=== PATIENT | female | born 1985 | race American Indian/Alaskan Native ===

== ENCOUNTER 2018-05-17 18:48 | Emergency (ER) | payer OTHER ==
--- NOTE | 2018-05-17 19:28 | Emergency Department Report ---
Blank Doc - Documentation Documentation: This is a 32-year-old female that presents with sore throat. This initial assessment/diagnostic orders/clinical plan/treatment(s) is/are subject to change based on patient's health status, clinical progression and re- assessment by fellow clinical providers in the ED. Further treatment and workup at subsequent clinical providers discretion. Patient/guardians urged not to elope from the ED as their condition may be serious if not clinically assessed and managed. Initial orders include: 1- Patient sent to [facility] for further evaluation and treatment 2- strep swab
[2018-05-17 19:29] VITALS: BP 128/77
[2018-05-17] MEDS ORDERED: LIDOCAINE VISCOUS 2% PO ONE (21:15)
[2018-05-17] MEDS ORDERED: LIDOCAINE VISCOUS 2% ONE (21:15)
[2018-05-17] MEDS ORDERED: MOTRIN ONE (21:15)
[2018-05-17] MEDS ORDERED: IBUPROFEN PO ONE (21:15)
--- NOTE | 2018-05-17 22:16 | Emergency Department Report ---
ED ENT HPI - General Chief complaint: Sore Throat Stated complaint: SORE THROAT Time Seen by Provider: 05/17/18 19:26 Source: patient Mode of arrival: Ambulatory Limitations: No Limitations - History of Present Illness MD complaint: sore throat -: Gradual (5), days(s) Location: throat Severity: moderate Quality: aching, dull Consistency: constant Improves with: none Associated Symptoms: sore throat - Related Data Previous Rx's Medication Instructions Recorded Last Taken Type Amoxicillin 500 mg PO QID #40 capsule 05/17/18 Unknown Rx Lidocaine Viscous 2% 5 ml MM Q3H PRN #120 udc 05/17/18 Unknown Rx Allergies Allergy/AdvReac Type Severity Reaction Status Date / Time No Known Allergies Allergy Verified 05/17/18 21:42 ED Dental HPI - General Chief complaint: Sore Throat Stated complaint: SORE THROAT Time Seen by Provider: 05/17/18 19:26 Source: patient Mode of arrival: Ambulatory Limitations: No Limitations - Related Data Previous Rx's Medication Instructions Recorded Last Taken Type Amoxicillin 500 mg PO QID #40 capsule 05/17/18 Unknown Rx Lidocaine Viscous 2% 5 ml MM Q3H PRN #120 udc 05/17/18 Unknown Rx Allergies Allergy/AdvReac Type Severity Reaction Status Date / Time No Known Allergies Allergy Verified 05/17/18 21:42 ED Review of Systems ROS: Stated complaint: SORE THROAT Other details as noted in HPI Constitutional: denies: chills, fever Eyes: denies: eye pain, eye discharge, vision change ENT: throat pain. denies: ear pain Respiratory: denies: cough, shortness of breath, wheezing Cardiovascular: denies: chest pain, palpitations Endocrine: no symptoms reported Gastrointestinal: denies: abdominal pain, nausea, diarrhea Genitourinary: denies: urgency, dysuria, discharge Musculoskeletal: denies: back pain, joint swelling, arthralgia Skin: denies: rash, lesions Neurological: denies: headache, weakness, paresthesias Psychiatric: denies: anxiety, depression Hematological/Lymphatic: denies: easy bleeding, easy bruising ED Past Medical Hx - Past Medical History Previous Medical History?: No - Surgical History Past Surgical History?: No - Social History Smoking Status: Former Smoker Substance Use Type: None - Medications Home Medications: Home Medications Medication Instructions Recorded Confirmed Last Taken Type Amoxicillin 500 mg PO QID #40 capsule 05/17/18 Unknown Rx Lidocaine Viscous 2% 5 ml MM Q3H PRN #120 udc 05/17/18 Unknown Rx ED Physical Exam - General Limitations: No Limitations General appearance: alert, in no apparent distress - Head Head exam: Present: atraumatic, normocephalic - Eye Eye exam: Present: normal appearance, PERRL, EOMI Pupils: Present: normal accommodation - ENT ENT exam: Present: mucous membranes moist, other (pharynx is erythematous with swollen tonsils. No exudate noted. Tongue and uvula are midline. No drooling appreciated. No intraoral lesions noted.) - Neck Neck exam: Present: normal inspection, full ROM, lymphadenopathy (tonsillar lymph nodes) - Respiratory Respiratory exam: Present: normal lung sounds bilaterally. Absent: respiratory distress - Cardiovascular Cardiovascular Exam: Present: regular rate, normal rhythm. Absent: systolic murmur, diastolic murmur, rubs, gallop - GI/Abdominal GI/Abdominal exam: Present: soft, normal bowel sounds - Extremities Exam Extremities exam: Present: normal inspection - Back Exam Back exam: Present: normal inspection - Neurological Exam Neurological exam: Present: alert, oriented X3 - Psychiatric Psychiatric exam: Present: normal affect, normal mood - Skin Skin exam: Present: warm, dry, intact, normal color. Absent: rash ED Course Vital Signs 05/17/18 19:27 Temperature 98.5 F Pulse Rate 88 Respiratory 16 Rate Blood Pressure 128/77 [Left] O2 Sat by Pulse 98 Oximetry Critical care attestation.: If time is entered above; I have spent that time in minutes in the direct care of this critically ill patient, excluding procedure time. ED Disposition Clinical Impression: Pharyngitis Disposition: DC-01 TO HOME OR SELFCARE Is pt being admited?: No Does the pt Need Aspirin: No Condition: Stable Instructions: Pharyngitis (ED), Tonsillitis (ED), Strep Throat (ED) Referrals: LISBETH MUÑIZ MD [Primary Care Provider] - 3-5 Days
== END 2018-05-17 22:30 | disposition home or self-care (01) ==
LOC: ED 18:48
DX: J02.9 Acute pharyngitis, unspecified (principal); Z87.891 Personal history of nicotine dependence
CPT/HCPCS: 99282

== ENCOUNTER 2018-12-12 16:28 | Emergency (ER) | payer SELFPAY ==
--- NOTE | 2018-12-12 19:56 | Event Note ---
ED Screening Note Date of service: 12/12/18 Time: 19:53 ED Screening Note: Pt c/o of sore throat since tuesday with associated difficulty swallowing, swelling, drooling, lots of spitting, nausea and vomiting and today she felt like her throat was closing. Denies any fever. +chills and diaphoresis. +hysical findings concerning for peritonsillar abscess. This initial assessment/diagnostic orders/clinical plan/treatment(s) is/are subject to change based on patients health status, clinical progression and re- assessment by fellow clinical providers in the ED. Further treatment and workup at subsequent clinical providers discretion. Patient/guardian urged not to elope from the ED as their condition may be serious if not clinically assessed and managed. Initial orders include: Ct soft tissue neck Labs strep mono
[2018-12-12 20:18] LABS: Basophils # (Auto) 0.1 K/mm3 (0.0-0.1); Basophils % (Auto) 0.3 % (0.0-1.8); Eosinophils # (Auto) 0.1 K/mm3 (0.0-0.4); Eosinophils % (Auto) 0.6 % (0.0-4.3); Hematocrit 36.8 % (30.3-42.9); Hemoglobin 12.1 gm/dl (10.1-14.3); Lymphocytes # (Auto) 2.2 K/mm3 (1.2-5.4); Lymphocytes % (Auto) 12.6 % (13.4-35.0); Mean Corpuscular HGB Conc 33 % (30-34); Mean Corpuscular Volume 90 fl (79-97); Monocytes # (Auto) 1.6 K/mm3 (0.0-0.8); Monocytes % (Auto) 9.5 % (0.0-7.3); Platelet Count 246 K/mm3 (140-440); Red Cell Distribution Width 15.6 % (13.2-15.2)
[2018-12-12 20:40] LABS: Alanine Aminotransferase 9 units/L (7-56); Albumin 3.3 g/dL (3.9-5); BUN/Creatinine Ratio 8; Blood Urea Nitrogen 4 mg/dL (7-17); Calcium 8.9 mg/dL (8.4-10.2); Hemolysis Index 40
[2018-12-12] MEDS ORDERED: dexAMETHasone 20 MG/5 ML VIAL IV ONE (21:21)
[2018-12-12] MEDS ORDERED: KETOROLAC 30 MG/1 ML INJ IV ONE (21:21)
--- NOTE | 2018-12-12 22:01 | Emergency Department Report ---
ED ENT HPI - General Chief complaint: Sore Throat Stated complaint: SORE THROAT Time Seen by Provider: 12/12/18 21:05 Source: patient Mode of arrival: Ambulatory Limitations: No Limitations - History of Present Illness Initial comments: Pt is a 33 y/o aaf who presents for sore throat since tuesday with associated difficulty swallowing, swelling, drooling, lots of spitting, nausea and vomiting and today. she felt like her throat was closing. Denies any fever. +chills and diaphoresis. Pt has not attempted otc nsaids. MD complaint: sore throat Onset/Timin -: week(s) Location: throat Severity: moderate Severity scale (0 -10): 5 Quality: sharp Consistency: constant Improves with: none Worsens with: swallowing Associated Symptoms: pain with swallowing, sore throat. denies: fever, cough, gum swelling, tinnitus, discharge from ear, rhinorrhea - Related Data Previous Rx's Medication Instructions Recorded Last Taken Type Amoxicillin 500 mg PO QID #40 capsule 05/17/18 Unknown Rx Lidocaine Viscous 2% 5 ml MM Q3H PRN #120 udc 05/17/18 Unknown Rx Benzocaine/Mentho [Cepacol X 1 each MM Q2H PRN #3 packet 12/12/18 Unknown Rx Strength] Clindamycin [Clindamycin CAP] 300 mg PO Q6H 10 Days #40 capsule 12/12/18 Unknown Rx Ibuprofen [Motrin 800 MG tab] 800 mg PO Q8HR PRN #30 tablet 12/12/18 Unknown Rx dexAMETHasone [Decadron] 4 mg PO BID #6 tablet 12/12/18 Unknown Rx Allergies Allergy/AdvReac Type Severity Reaction Status Date / Time No Known Allergies Allergy Verified 05/17/18 21:42 ED Dental HPI - General Chief complaint: Sore Throat Stated complaint: SORE THROAT Time Seen by Provider: 12/12/18 21:05 Source: patient Mode of arrival: Ambulatory Limitations: No Limitations - Related Data Previous Rx's Medication Instructions Recorded Last Taken Type Amoxicillin 500 mg PO QID #40 capsule 05/17/18 Unknown Rx Lidocaine Viscous 2% 5 ml MM Q3H PRN #120 udc 05/17/18 Unknown Rx Benzocaine/Mentho [Cepacol X 1 each MM Q2H PRN #3 packet 12/12/18 Unknown Rx Strength] Clindamycin [Clindamycin CAP] 300 mg PO Q6H 10 Days #40 capsule 12/12/18 Unknown Rx Ibuprofen [Motrin 800 MG tab] 800 mg PO Q8HR PRN #30 tablet 12/12/18 Unknown Rx dexAMETHasone [Decadron] 4 mg PO BID #6 tablet 12/12/18 Unknown Rx Allergies Allergy/AdvReac Type Severity Reaction Status Date / Time No Known Allergies Allergy Verified 05/17/18 21:42 ED Review of Systems ROS: Stated complaint: SORE THROAT Other details as noted in HPI Constitutional: chills, malaise Eyes: denies: eye pain, eye discharge, vision change ENT: throat pain Respiratory: denies: cough, shortness of breath, wheezing Cardiovascular: denies: chest pain, palpitations Endocrine: no symptoms reported Gastrointestinal: denies: abdominal pain, nausea, vomiting, diarrhea Genitourinary: denies: urgency, dysuria, discharge Musculoskeletal: denies: back pain, joint swelling, arthralgia Skin: denies: rash, lesions Neurological: denies: headache, weakness, paresthesias Psychiatric: as per HPI Hematological/Lymphatic: denies: as per HPI, easy bleeding, easy bruising ED Past Medical Hx - Past Medical History Previous Medical History?: No - Surgical History Past Surgical History?: No - Social History Smoking Status: Never Smoker - Medications Home Medications: Home Medications Medication Instructions Recorded Confirmed Last Taken Type Amoxicillin 500 mg PO QID #40 capsule 05/17/18 Unknown Rx Lidocaine Viscous 2% 5 ml MM Q3H PRN #120 udc 05/17/18 Unknown Rx Benzocaine/Mentho [Cepacol X 1 each MM Q2H PRN #3 packet 12/12/18 Unknown Rx Strength] Clindamycin [Clindamycin CAP] 300 mg PO Q6H 10 Days #40 capsule 12/12/18 Unknown Rx Ibuprofen [Motrin 800 MG tab] 800 mg PO Q8HR PRN #30 tablet 12/12/18 Unknown Rx dexAMETHasone [Decadron] 4 mg PO BID #6 tablet 12/12/18 Unknown Rx ED Physical Exam - General Limitations: No Limitations General appearance: alert, in no apparent distress - Head Head exam: Present: atraumatic, normocephalic - Eye Eye exam: Present: normal appearance, PERRL, EOMI Pupils: Present: normal accommodation - ENT ENT exam: Present: mucous membranes moist, TM's normal bilaterally, normal external ear exam - Expanded ENT Exam Expanded Ear exam: Present: normal external inspection Mouth exam: Absent: trismus Throat exam: Positive: tonsillar erythema, tonsillomegaly, tonsillar exudate, other (uvula midline no stridor no wheezing minimal anterior swelling , no visible abscess). Negative: R peritonsillar mass, L peritonsillar mass - Neck Neck exam: Present: normal inspection, full ROM, lymphadenopathy. Absent: tenderness, meningismus, thyromegaly - Expanded Neck Exam Expanded Neck exam: Absent: tenderness, midline deformity, anterior neck swelling, thyroid mass, carotid bruit, tracheal deviation - Respiratory Respiratory exam: Present: normal lung sounds bilaterally. Absent: respiratory distress, wheezes, stridor, chest wall tenderness - Cardiovascular Cardiovascular Exam: Present: regular rate, normal rhythm, normal heart sounds. Absent: systolic murmur, diastolic murmur, rubs, gallop - GI/Abdominal GI/Abdominal exam: Present: soft, normal bowel sounds. Absent: distended, tenderness, bruit, hernia - Rectal Rectal exam: Present: deferred - Extremities Exam Extremities exam: Present: normal inspection, full ROM. Absent: tenderness - Back Exam Back exam: Present: normal inspection, full ROM. Absent: tenderness, CVA tenderness (R), CVA tenderness (L), rash noted - Neurological Exam Neurological exam: Present: alert, oriented X3, CN II-XII intact, normal gait - Psychiatric Psychiatric exam: Present: normal affect, normal mood - Skin Skin exam: Present: warm, dry, intact, normal color. Absent: rash ED Course Vital Signs 12/12/18 12/12/18 12/12/18 16:37 19:50 21:49 Temperature 98.7 F 99 F Pulse Rate 90 91 H Respiratory 16 18 Rate Blood Pressure 127/76 137/79 O2 Sat by Pulse 99 99 Oximetry ED Medical Decision Making - Lab Data Result diagrams: 12/12/18 20:04 12/12/18 20:04 Labs 12/12/18 12/12/18 12/12/18 19:55 20:04 20:04 WBC 17.3 H RBC 4.10 Hgb 12.1 Hct 36.8 MCV 90 MCH 30 MCHC 33 RDW 15.6 H Plt Count 246 Lymph % (Auto) 12.6 L Cook % (Auto) 9.5 H Eos % (Auto) 0.6 Baso % (Auto) 0.3 Lymph # 2.2 Cook # 1.6 H Eos # 0.1 Baso # 0.1 Seg Neutrophils % 77.0 H Seg Neutrophils # 13.3 H Sodium 133 L Potassium 3.6 Chloride 99.5 Carbon Dioxide 21 L Anion Gap 16 BUN 4 L Creatinine 0.5 L Estimated GFR > 60 BUN/Creatinine Ratio 8 Glucose 97 Calcium 8.9 Total Bilirubin 0.40 AST 13 ALT 9 Alkaline Phosphatase 86 Total Protein 7.9 Albumin 3.3 L Albumin/Globulin Ratio 0.7 Monoscreen Group A Strep Rapid Positive A 12/12/18 20:04 WBC RBC Hgb Hct MCV MCH MCHC RDW Plt Count Lymph % (Auto) Cook % (Auto) Eos % (Auto) Baso % (Auto) Lymph # Cook # Eos # Baso # Seg Neutrophils % Seg Neutrophils # Sodium Potassium Chloride Carbon Dioxide Anion Gap BUN Creatinine Estimated GFR BUN/Creatinine Ratio Glucose Calcium Total Bilirubin AST ALT Alkaline Phosphatase Total Protein Albumin Albumin/Globulin Ratio Monoscreen Negative Group A Strep Rapid - Radiology Data Radiology results: report reviewed, image reviewed Ordering Physician: MANDY MURDOCK Date of Service: 12/12/18 Procedure(s): CT neck w con Accession Number(s): [id number] cc: MANDY MURDOCK NECK CT 12/12/2018 HISTORY: Neck pain. Sore throat. FINDINGS: Contrast enhanced CT images of the soft tissues of the neck were obtained. Images are evaluated in the axial, coronal, and sagittal planes. There is prominent lymphoid hyperplasia in the tonsillar regions bilaterally, more prominently on the right than on the left. There is lucency in the right peritonsillar region, consistent with peritonsillar abscess. This hypodensity is somewhat inhomogeneous, consistent with a loculated fluid collection, with overall measurement of approximately 2.2 x 1.9 x 3.4 cm. Soft tissue structures in the neck are otherwise unremarkable. Epiglottis is unremarkable. There are findings consistent with bilateral reactive adenopathy. Incidental note is made of near complete opacification of the right maxillary sinus, with a central air-fluid level. IMPRESSION: Complete hyperplasia with evidence of right peritonsillar abscess as described above. Reactive adenopathy. Right maxillary sinusitis. All CT scans at this location are performed using dose reduction to ALARA by means of automated exposure control. Signer Name: Benjamín Posey MD Signed: 12/12/2018 10:47 PM Workstation Name: [id number] Transcribed By: ALMA Dictated By: Benjamín Posey MD Electronically Authenticated By: Benjamín Posey MD Signed Date/Time: 12/12/182246 DD/ 41 TD/TT: - Medical Decision Making ct confirms peritonsilar abscess, and sinusitis, pt offered admission and ENT consult, She declines same. pt states she feels much better and cannot afford to stay in hospital. There is no fever, no stridor, no wheezing, no sob, pt does apear well, is tolerating po intake, without symptoms, I advised pt of her diagnosis and need for ENT Consult and possible I&D of peritonsilar abscess, and iv abx therapy, including risks of po tx only , incuding worsening of symptoms, and possibility of , due to worsening symptoms or throat swelling, pt declines admission, and ENT consult, pt is currently a/o x 3, with nad, pt demonstrates sound decision making capacity, pt will sign out ama at this time, pt will follow up with ENT tomorrow Maggi Reeves, will return to ed if symptoms worsen, will dc to home wt rx for clindamycin 300 mg po qid x 10 days, decadron 4mg po bid x 3 days, Ibuprofen 800mg po tid, cepacol throat lozenges. pt signed AMA at this time, disiposition is AMA, condition is undertermined. Critical care attestation.: If time is entered above; I have spent that time in minutes in the direct care of this critically ill patient, excluding procedure time. ED Disposition Clinical Impression: Peritonsillar abscess Sinusitis Qualifiers: Sinusitis location: maxillary Chronicity: acute Recurrence: non-recurrent Qualified Code(s): J01.00 - Acute maxillary sinusitis, unspecified Disposition: DC-07 LEFT AGAINST MED ADVICE Is pt being admited?: No Does the pt Need Aspirin: No Condition: Undetermined Instructions: Peritonsillar Abscess (ED), Sinusitis (ED) Prescriptions: Benzocaine/Mentho [Cepacol X Strength] 1 each MM Q2H PRN #3 packet PRN Reason: throat pain Clindamycin [Clindamycin CAP] 300 mg PO Q6H 10 Days #40 capsule dexAMETHasone [Decadron] 4 mg PO BID #6 tablet Ibuprofen [Motrin 800 MG tab] 800 mg PO Q8HR PRN #30 tablet PRN Reason: pain Referrals: JULIETA REEVES MD [Staff Physician] - [facility] Forms: AMA Form Time of Disposition: 23:23
--- NOTE | 2018-12-12 22:51 | Cat Scan Report ---
NECK CT 12/12/2018 HISTORY: Neck pain. Sore throat. FINDINGS: Contrast enhanced CT images of the soft tissues of the neck were obtained. Images are evalu ated in the axial, coronal, and sagittal planes. There is prominent lymphoid hyperplasia in the tonsillar regions bilaterally, more prominently on the right than on the left. There is lucency in the right peritonsillar region, consistent with peritons illar abscess. This hypodensity is somewhat inhomogeneous, consistent with a loculated fluid collecti on, with overall measurement of approximately 2.2 x 1.9 x 3.4 cm. Soft tissue structures in the neck are otherwise unremarkable. Epiglottis is unremarkable. There are findings consistent with bilateral reactive adenopathy. Incidental note is made of near complete opacification of the right maxillary sinus, with a central air-fluid level. IMPRESSION: Complete hyperplasia with evidence of right peritonsillar abscess as described above. Reactive adenopathy. Right maxillary sinusitis. All CT scans at this location are performed using dose reduction to ALARA by means of automated expos ure control. Signer Name: Benjamín Posey MD Signed: 12/12/2018 10:47 PM Workstation Name: [id number]
[2018-12-13 01:00] VITALS: BP 117/79
== END 2018-12-12 23:40 | disposition left against medical advice (07) ==
LOC: ED 16:28
DX: J36 Peritonsillar abscess (principal); J32.9 Chronic sinusitis, unspecified; Z79.899 Other long term (current) drug therapy
CPT/HCPCS: 36415; 70491; 80053; 85025; 86308; 87430; 96365; 96375; 99284; J1100; J1885; Q9967

== ENCOUNTER 2020-03-31 14:14 | Emergency (ER) | payer SELFPAY ==
--- NOTE | 2020-03-31 15:36 | Emergency Department Report ---
Blank Doc - Documentation Documentation: 34-year-old female that presents with abdominal pain. 1- This initial assessment/diagnostic orders/clinical plan/ treatment(s) is/are subject to change based on pt's health status, clinical progression and re- assessment by fellow clinical providers in the ED. Further treatment and workup at subsequent clinical provers discretion. Patient/guardians urged not to elope from ED as their condition may be serious if not clinically assessed and managed. 2-labs 3-UA
[2020-03-31 15:58] LABS: Basophils # (Auto) 0.1 K/mm3 (0.0-0.1); Basophils % (Auto) 1.2 % (0.0-1.8); Eosinophils # (Auto) 1.2 K/mm3 (0.0-0.4); Eosinophils % (Auto) 13.9 % (0.0-4.3); Hematocrit 38.9 % (30.3-42.9); Hemoglobin 13.6 gm/dl (10.1-14.3); Lymphocytes # (Auto) 3.6 K/mm3 (1.2-5.4); Mean Corpuscular HGB Conc 35 % (30-34); Mean Corpuscular Volume 95 fl (79-97); Monocytes # (Auto) 0.6 K/mm3 (0.0-0.8); Monocytes % (Auto) 6.8 % (0.0-7.3); Platelet Count 205 K/mm3 (140-440); Red Blood Count 4.12 M/mm3 (3.65-5.03); Red Cell Distribution Width 14.8 % (13.2-15.2)
[2020-03-31 16:26] LABS: Alanine Aminotransferase 11 units/L (7-56); Albumin 4.4 g/dL (3.9-5); BUN/Creatinine Ratio 14; Blood Urea Nitrogen 11 mg/dL (7-17); Calcium 9.8 mg/dL (8.4-10.2); Hemolysis Index 10
[2020-03-31 17:27] VITALS: BP 118/71
--- NOTE | 2020-03-31 17:35 | Emergency Department Report ---
ED Abdominal Pain HPI - General Chief Complaint: Abdominal Pain Stated Complaint: ABD PAIN Time Seen by Provider: 03/31/20 15:07 Source: patient Mode of arrival: Ambulatory Limitations: No Limitations - History of Present Illness Initial Comments: Patient is a 34-year-old female presents emergency room with complaints of soreness to the umbilicus region that began a week ago. She states that only feels sore when she presses on it. She states otherwise she does not have any abdominal pain. She denies any history of any abdominal surgeries. She denies any fever, nausea, vomiting, diarrhea. She states that she is having normal bowel movement and passing gas. She denies any hematochezia, hematemesis, melena. She denies any urinary symptoms. No past medical history. No allergies medications. Last menstrual cycle last week. - Related Data Previous Rx's Medication Instructions Recorded Last Taken Type Amoxicillin 500 mg PO QID #40 capsule 05/17/18 Unknown Rx Lidocaine Viscous 2% 5 ml MM Q3H PRN #120 udc 05/17/18 Unknown Rx Benzocaine/Mentho [Cepacol X 1 each MM Q2H PRN #3 packet 12/12/18 Unknown Rx Strength] Clindamycin [Clindamycin CAP] 300 mg PO Q6H 10 Days #40 capsule 12/12/18 Unknown Rx Ibuprofen [Motrin 800 MG tab] 800 mg PO Q8HR PRN #30 tablet 12/12/18 Unknown Rx dexAMETHasone [Decadron] 4 mg PO BID #6 tablet 12/12/18 Unknown Rx Allergies Allergy/AdvReac Type Severity Reaction Status Date / Time No Known Allergies Allergy Verified 05/17/18 21:42 ED Review of Systems ROS: Stated complaint: ABD PAIN Other details as noted in HPI Comment: All other systems reviewed and negative ED Past Medical Hx - Past Medical History Previous Medical History?: No - Surgical History Past Surgical History?: No - Social History Smoking Status: Never Smoker Substance Use Type: None - Medications Home Medications: Home Medications Medication Instructions Recorded Confirmed Last Taken Type Amoxicillin 500 mg PO QID #40 capsule 05/17/18 Unknown Rx Lidocaine Viscous 2% 5 ml MM Q3H PRN #120 udc 05/17/18 Unknown Rx Benzocaine/Mentho [Cepacol X 1 each MM Q2H PRN #3 packet 12/12/18 Unknown Rx Strength] Clindamycin [Clindamycin CAP] 300 mg PO Q6H 10 Days #40 capsule 12/12/18 Unknown Rx Ibuprofen [Motrin 800 MG tab] 800 mg PO Q8HR PRN #30 tablet 12/12/18 Unknown Rx dexAMETHasone [Decadron] 4 mg PO BID #6 tablet 12/12/18 Unknown Rx ED Physical Exam - General Limitations: No Limitations General appearance: alert, in no apparent distress - Head Head exam: Present: atraumatic, normocephalic - Eye Eye exam: Present: normal appearance - ENT ENT exam: Present: mucous membranes moist - Respiratory Respiratory exam: Present: normal lung sounds bilaterally. Absent: respiratory distress, wheezes, rales, rhonchi, stridor, chest wall tenderness, accessory muscle use, decreased breath sounds, prolonged expiratory - Cardiovascular Cardiovascular Exam: Present: regular rate, normal rhythm, normal heart sounds. Absent: systolic murmur, diastolic murmur, rubs, gallop - GI/Abdominal GI/Abdominal exam: Present: soft, normal bowel sounds, hernia (small 1 cm umbilical hernia easily reducible, no signs of strangulation ). Absent: distended, tenderness, guarding, rebound, rigid - Neurological Exam Neurological exam: Present: alert, oriented X3 - Psychiatric Psychiatric exam: Present: normal affect, normal mood - Skin Skin exam: Present: warm, dry, intact ED Course Vital Signs 03/31/20 15:07 Temperature 98.1 F Pulse Rate 71 Respiratory 16 Rate Blood Pressure 118/71 O2 Sat by Pulse 100 Oximetry ED Medical Decision Making - Lab Data Result diagrams: 03/31/20 15:44 03/31/20 15:44 - Medical Decision Making Patient is a 34-year-old female presents emergency room with complaints of soreness to the umbilicus region that began a week ago. She states that only feels sore when she presses on it. She states otherwise she does not have any abdominal pain. She denies any history of any abdominal surgeries. She denies any fever, nausea, vomiting, diarrhea. She states that she is having normal bowel movement and passing gas. She denies any hematochezia, hematemesis, melena. She denies any urinary symptoms. No past medical history. No allergies medications. Last menstrual cycle last week. Vitals are normal. On exam:small 1 cm umbilical hernia easily reducible, no signs of strangulation. Labs ordered prior to my examination are within normal limits. Patient has a easily reducible umbilical hernia, no signs of obstruction, no signs of strangulation or ischemia. Advised patient Please follow-up with a general surgeon. Please follow-up with a primary care doctor. Return to emergency room for any new or worsening symptoms including but not limited to worsening pain, constant vomiting, unable to tolerate p.o. intake, unable to pass gas or have bowel movements, etc. Critical care attestation.: If time is entered above; I have spent that time in minutes in the direct care of this critically ill patient, excluding procedure time. ED Disposition Clinical Impression: Umbilical hernia Qualifiers: Obstruction and gangrene presence: without obstruction or gangrene Qualified Code(s): K42.9 - Umbilical hernia without obstruction or gangrene Disposition: TO HOME OR SELFCARE Is pt being admited?: No Does the pt Need Aspirin: No Condition: Stable Instructions: Umbilical Hernia, Adult, Abdominal Pain (ED) Additional Instructions: Please follow-up with a general surgeon. Please follow-up with a primary care doctor. Return to emergency room for any new or worsening symptoms including but not limited to worsening pain, constant vomiting, unable to tolerate p.o. intake, unable to pass gas or have bowel movements, etc. Referrals: PRIMARY CARE, [Primary Care Provider] - 2-3 Days APOORVA SKINNER DO [Staff Physician] - 2-3 Days Time of Disposition: 17:33 Print Language: CHINESE
== END 2020-03-31 17:45 | disposition home or self-care (01) ==
LOC: ED 14:14
DX: K42.9 Umbilical hernia without obstruction or gangrene (principal); Z79.899 Other long term (current) drug therapy
CPT/HCPCS: 36415; 80053; 83690; 84703; 85025; 99283